=== PATIENT | male | born 1985 | race African-American/Black ===

== ENCOUNTER 2016-11-28 19:36 | Emergency (ER) | payer SELFPAY ==
[2016-11-28 19:59] LABS: BILIRUBIN NEGATIVE (NEGATIVE); BLOOD 2+ Ery/uL (NEGATIVE); CLARITY CLEAR (CLEAR); COLOR YELLOW (YELLOW); GLUCOSE (U) NORMAL (NORMAL); KETONE (U) NEGATIVE (NEGATIVE); LEUKOCYTES 2+ Leu/uL (NEGATIVE); NITRITE NEGATIVE (NEGATIVE); PROTEIN NEGATIVE (NEGATIVE); UROBILINOGEN 0.2 mg/dL (0.2-1.0)
[2016-11-28 20:07] LABS: BACTERIA 1+; URINARY RBC 20-50; URINARY WBC 20-50
[2016-11-28 20:53] LABS: BASOPHIL 0.5 % (0-2); EOSINOPHIL 1.5 % (0-5); HCT 48.6 % (42.0-52.0); HGB 16.6 g/dl (13.2-18.0); LYMPHOCYTE 25.8 % (15-48); MCH 31.1 pg (25.0-31.0); MCHC 34.2 g/dL (32.0-36.0); MONOCYTE 15.2 % (0-12); MPV 9.9 fL (6.0-9.5); PLT 317 K/uL (150-400); RBC 5.34 M/uL (4.70-6.00); RDW 12.9 % (11.5-14.0); WBC 8.8 K/uL (4.0-10.5)
[2016-11-28 21:11] LABS: POTASSIUM 4.3 mmol/L (3.5-5.1)
== END 2016-11-28 21:57 | disposition home or self-care (01) ==
LOC: FER 19:36
PROVIDERS: Emergency Medicine
DX: N39.0 Urinary tract infection, site not specified (principal); R31.9 Hematuria, unspecified; F17.210 Nicotine dependence, cigarettes, uncomplicated
CPT/HCPCS: 36415; 80048; 81001; 85025; 87804; 87899; 99283

== ENCOUNTER 2021-08-27 16:20 | Emergency (ER) | payer OTHER ==
[~2021-08-27 16:20] MED LIST: AMARYL2 MG PO; AZITHROMYCIN250 MG PO; KEFLEX250 MG PO; METFORMIN HCL500 MG PO; NAPROSYN375 MG PO; TESSALON PERLE100 M1 PO; VENTOLIN HFA IN18 GM INH
[2021-08-27 18:10] LABS: BASOPHIL 0.6 % (0-2); EOSINOPHIL 6.9 % (0-5); HCT 51.2 % (42.0-52.0); HGB 17.1 g/dl (13.2-18.0); LYMPHOCYTE 29.4 % (15-48); MCH 31.1 pg (25.0-31.0); MCHC 33.4 g/dL (32.0-36.0); MCV 93.3 fL (78.0-100.0); MONOCYTE 7.8 % (0-12); MPV 10.3 fL (6.0-9.5); NEUTROPHIL 54.9 % (41-80); NRBC 0; PLT 337 K/uL (150-400); RBC 5.49 M/uL (4.70-6.00); RDW 13.2 % (11.5-14.0); WBC 11.3 K/uL (4.0-10.5)
[2021-08-27 18:30] LABS: BUN/CREAT RATIO (CALC) 11.1 RATIO; CREATININE 0.72 mg/dL (0.67-1.17); POTASSIUM 3.6 mmol/L (3.5-5.1)
[2021-08-27] MEDS ORDERED: PREDNISONE 20MG20 MG PO (19:02)
== END 2021-08-27 19:17 | disposition home or self-care (01) ==
LOC: FER 16:20
PROVIDERS: Nurse Practitioner Family
DX: U07.1 COVID-19 (principal); J45.909 Unspecified asthma, uncomplicated; E11.9 Type 2 diabetes mellitus without complications; I10 Essential (primary) hypertension; Z79.84 Long term (current) use of oral hypoglycemic drugs; Z79.899 Other long term (current) drug therapy
CPT/HCPCS: 36415; 71045; 80048; 84484; 85025; 85379; 93005; 94640; 94664; J1100; U0002